=== PATIENT | male | born 1985 | race Caucasian/White ===

== ENCOUNTER 2020-10-18 06:00 | Outpatient (RCR) | payer OTHER, SELFPAY | END 2020-11-04 23:59 | disposition home or self-care (01) | LOC: MOT 06:00 | PROVIDERS: Referring Provider Orthopaedic Surgery; Visit Provider Orthopaedic Surgery | DX: S61.011A Laceration without foreign body of right thumb without damage to nail, initial encounter (principal); X58.XXXA Exposure to other specified factors, initial encounter | CPT/HCPCS: 97110; 97140; 97165 ==

== ENCOUNTER 2020-11-05 06:00 | Outpatient (RCR) | payer OTHER, SELFPAY | END 2020-12-05 23:59 | disposition home or self-care (01) | LOC: MOT 06:00 | PROVIDERS: Referring Provider Orthopaedic Surgery; Visit Provider Orthopaedic Surgery | DX: S61.121A Laceration with foreign body of right thumb with damage to nail, initial encounter (principal); T75.89XA Other specified effects of external causes, initial encounter | CPT/HCPCS: 97035; 97110; 97140 ==

== ENCOUNTER 2020-12-06 06:00 | Outpatient (RCR) | payer OTHER, SELFPAY | END 2021-01-04 23:59 | disposition home or self-care (01) | LOC: MOT 06:00 | PROVIDERS: Referring Provider Orthopaedic Surgery; Visit Provider Orthopaedic Surgery | DX: S61.011D Laceration without foreign body of right thumb without damage to nail, subsequent encounter (principal) | CPT/HCPCS: 97110; 97140 ==